=== PATIENT | male | born 1990 | race Caucasian/White ===

== ENCOUNTER 2018-06-27 15:15 | Emergency (ER) | payer OTHER ==
[2018-06-27 15:21] VITALS: BP 143/82
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
== END 2018-06-27 16:12 | disposition home or self-care (01) ==
LOC: ER 15:15
DX: S42.002A Fracture of unspecified part of left clavicle, initial encounter for closed fracture (principal); S40.212A Abrasion of left shoulder, initial encounter; V87.8XXA Person injured in other specified noncollision transport accidents involving motor vehicle (traffic), initial encounter
CPT/HCPCS: 99283